=== PATIENT | female | born 1970 | race Caucasian/White ===

== ENCOUNTER 2022-09-10 11:01 | Emergency (ER) | payer MEDICAID ==
[~2022-09-10] VITALS: Ht 167.6 cm; Wt 81.6 kg
[2022-09-10 11:13] VITALS: BP 136/80
--- NOTE | 2022-09-10 11:20 | NUR ---
DR LOVE AT BEDSIDE FOR EVAL
--- NOTE | 2022-09-10 13:26 | NUR ---
Patient discharged to home in stable condition. Written and verbal after care instructions given. Patient verbalizes understanding of instruction.
== END 2022-09-10 13:26 | disposition home or self-care (01) ==
LOC: ER 11:08
DX: S92.511A Displaced fracture of proximal phalanx of right lesser toe(s), initial encounter for closed fracture (principal); W22.03XA Walked into furniture, initial encounter; Y93.89 Activity, other specified; Y92.89 Other specified places as the place of occurrence of the external cause; Y99.8 Other external cause status
CPT/HCPCS: 73660-TC